=== PATIENT | female | born 1990 ===

== ENCOUNTER → 2022-09-26 15:12 | Outpatient (CLI) | payer BC, SELFPAY ==
--- NOTE | ~2022-09-26 | US_ITS ---
Pelvic ultrasound. Clinical History: First trimester , establish dates Technique: Realtime transabdominal and transvaginal scanning of the pelvis was performed. Color flow Doppler and Doppler spectral analysis were performed. Findings: The uterus is retroverted. There is a probable very early intrauterine gestational sac, wit h estimated gestational age of 5 weeks 3 days based on average sac diameter 7 mm. No pole or yo lk sac evident at this time.. The right ovary measures 3.0 x 1.1 x 2.1 cm. No significant right ovarian or adnexal mass is seen. The left ovary measures 2.1 x 3.1 x 1.9 cm. No significant left ovarian or adnexal mass is seen. There is no evidence of free fluid in the cul de sac. Impression: Probable early intrauterine gestational sac with estimated gestational age of 5 weeks 2 days based on average sac diameter. No pole or yolk sac seen at this time. Nonviable or pseudogest ational sac with nonvisualized ectopic are also possible. Correlate clinically. Continued f ollow-up with serial beta hCG, and repeat ultrasound as warranted, is advised. Reviewed, dictated and finalized at location . Impression: Probable early intrauterine gestational sac with estimated gestational age of 5 weeks 2 days based on average sac diameter. No pole or yolk sac seen at this time. Nonviable or pseudogestational sac with nonvisualized ecto pic are also possible. Correlate clinically. Continued follow-up with serial beta hCG, and repeat ultrasound as warranted, is advised.
== END ==
PROVIDERS: PCP Internal Medicine; Visit Provider Internal Medicine
DX: Z34.91 Encounter for supervision of normal pregnancy, unspecified, first trimester (principal); Z3A.01 Less than 8 weeks gestation of pregnancy
CPT/HCPCS: 76801; 76817